=== PATIENT | female | born 1945 | race Asian ===

== ENCOUNTER 2016-12-11 11:04 | Outpatient (CLI) | payer OTHER ==
[~2016-12-11 11:04] MED LIST: BENADRYL25 M1 PO; CYCL10TA35 PO; HYDR10TA51 PO; LISI5TAB10 PO; MELO-13 PO; NEURONTIN800 MG PO; PRAVASTATIN10 MG PO; RANITIDINE 150150 MG PO; VESICARE10 MG OR; VITAMIN D32000 UNIT PO
[2016-12-11] MEDS ORDERED: RANITIDINE 150150 MG PO (11:54)
[2016-12-11] MEDS ORDERED: TRADJENTA5 M1 PO (11:54)
[2016-12-11] MEDS ORDERED: ESCITALOPRAM10 MG PO (11:54)
[2016-12-11] MEDS ORDERED: CELE200C2 PO (11:55)
[2016-12-11] MEDS ORDERED: LIPITOR10 MG PO (11:56)
[2016-12-11] MEDS ORDERED: TIZA4TAB5 PO (11:56)
[2017-04-17] MEDS ORDERED: VESICARE5 MG PO (03:17)
== END 2016-12-11 11:13 | disposition short-term general hospital (02) ==
LOC: AMB 11:04
DX: L89.329 Pressure ulcer of left buttock, unspecified stage (principal); L89.319 Pressure ulcer of right buttock, unspecified stage; R51 Headache
CPT/HCPCS: A0425; A0427

== ENCOUNTER 2016-12-11 11:13 | Emergency (ER) | payer OTHER ==
[~2016-12-11] VITALS: Ht 157.5 cm; Wt 72.6 kg
[2016-12-11] MEDS ORDERED: RANITIDINE 150150 MG PO (11:54)
[2016-12-11] MEDS ORDERED: TRADJENTA5 M1 PO (11:54)
[2016-12-11] MEDS ORDERED: ESCITALOPRAM10 MG PO (11:54)
[2016-12-11] MEDS ORDERED: CELE200C2 PO (11:55)
[2016-12-11] MEDS ORDERED: LIPITOR10 MG PO (11:56)
[2016-12-11] MEDS ORDERED: TIZA4TAB5 PO (11:56)
[2016-12-11 12:41] LABS: PLATELET COUNT 321 K/uL (152-353)
[2016-12-11 13:37] LABS: POTASSIUM 3.4 mmol/L (3.6-5.2); SODIUM 135 mmol/L (136-145)
[2016-12-11 14:47] VITALS: BP 147/78; TEMP 97.6
[2017-04-17] MEDS ORDERED: VESICARE5 MG PO (03:17)
== END 2016-12-11 14:48 | disposition home or self-care (01) ==
LOC: ED 11:13
PROVIDERS: Specialist
DX: M13.89 Other specified arthritis, multiple sites (principal); N39.0 Urinary tract infection, site not specified
CPT/HCPCS: 36415; 80048; 81000; 85027; 87088; 96372; 99283; J1885

== ENCOUNTER 2017-01-15 10:56 | Outpatient (CLI) | payer OTHER ==
[~2017-01-15 10:56] MED LIST changes: +CELE200C2 PO; +ESCITALOPRAM10 MG PO; +LIPITOR10 MG PO; +TIZA4TAB5 PO; +TRADJENTA5 M1 PO
[2017-01-15 11:21] LABS: PLATELET COUNT 370 K/uL (152-353)
[2017-01-16 06:29] LABS: POTASSIUM 3.9 mmol/L (3.6-5.2); SODIUM 136 mmol/L (136-145)
[2017-04-17] MEDS ORDERED: VESICARE5 MG PO (03:17)
== END 2017-01-15 19:41 | disposition home or self-care (01) ==
LOC: LABW 10:56
PROVIDERS: Nurse Practitioner
DX: M54.2 Cervicalgia (principal); D64.9 Anemia, unspecified; E11.9 Type 2 diabetes mellitus without complications; E55.9 Vitamin D deficiency, unspecified; M25.512 Pain in left shoulder; Z12.31 Encounter for screening mammogram for malignant neoplasm of breast
CPT/HCPCS: 36415; 80053; 82306; 82607; 82728; 83036; 83540; 84443; 85027; G0202-TC

== ENCOUNTER 2017-01-16 10:16 | Outpatient (CLI) | payer OTHER ==
[2017-04-17] MEDS ORDERED: VESICARE5 MG PO (03:17)
== END 2017-01-16 19:16 | disposition home or self-care (01) ==
LOC: LAB 10:16
DX: E11.9 Type 2 diabetes mellitus without complications (principal)
CPT/HCPCS: 82043; 82570

== ENCOUNTER 2017-02-05 20:54 | Outpatient (CLI) | payer OTHER ==
[2017-04-17] MEDS ORDERED: VESICARE5 MG PO (03:17)
== END 2017-02-05 21:04 | disposition short-term general hospital (02) ==
LOC: AMB 20:54
DX: M54.2 Cervicalgia (principal); M25.511 Pain in right shoulder; W18.11XA Fall from or off toilet without subsequent striking against object, initial encounter; Y92.89 Other specified places as the place of occurrence of the external cause
CPT/HCPCS: A0425; A0427

== ENCOUNTER 2017-02-05 21:04 | Emergency (ER) | payer OTHER ==
[~2017-02-05] VITALS: Ht 157.5 cm; Wt 68.0 kg
[2017-02-05 22:50] VITALS: BP 162/84; TEMP 97.8
[2017-04-17] MEDS ORDERED: VESICARE5 MG PO (03:17)
== END 2017-02-05 23:02 | disposition home or self-care (01) ==
LOC: ED 21:04
DX: M47.892 Other spondylosis, cervical region (principal); M25.712 Osteophyte, left shoulder; M25.711 Osteophyte, right shoulder; W18.11XA Fall from or off toilet without subsequent striking against object, initial encounter; Y92.89 Other specified places as the place of occurrence of the external cause
CPT/HCPCS: 99283

== ENCOUNTER 2017-02-21 11:05 | Outpatient (CLI) | payer OTHER ==
[2017-04-17] MEDS ORDERED: VESICARE5 MG PO (03:17)
== END 2017-02-21 20:18 | disposition home or self-care (01) ==
LOC: US 11:05
DX: R92.8 Other abnormal and inconclusive findings on diagnostic imaging of breast (principal)

== ENCOUNTER 2017-04-16 17:22 | Outpatient (CLI) | payer OTHER ==
[2017-04-17] MEDS ORDERED: VESICARE5 MG PO (03:17)
== END 2017-04-16 17:31 | disposition short-term general hospital (02) ==
LOC: AMB 17:22
DX: R51 Headache (principal); R53.1 Weakness; R06.09 Other forms of dyspnea
CPT/HCPCS: A0425; A0427

== ENCOUNTER 2017-06-17 13:40 | Outpatient (CLI) | payer OTHER ==
[~2017-06-17 13:40] MED LIST changes: +VESICARE5 MG PO
== END 2017-06-17 13:47 | disposition short-term general hospital (02) ==
LOC: AMB 13:40
DX: R25.2 Cramp and spasm (principal)
CPT/HCPCS: A0425; A0427

== ENCOUNTER 2017-06-17 13:52 | Emergency (ER) | payer OTHER ==
[~2017-06-17] VITALS: Ht 157.5 cm; Wt 59.0 kg
[2017-06-17 14:08] VITALS: TEMP 98.5
[2017-06-17 14:27] VITALS: BP 125/66
[2017-06-17 14:32] LABS: PLATELET COUNT 363 K/uL (152-353)
[2017-06-17 14:40] LABS: POTASSIUM 3.5 mmol/L (3.6-5.2); SODIUM 136 mmol/L (136-145)
== END 2017-06-17 16:20 | disposition home or self-care (01) ==
LOC: ED 13:52
DX: R41.0 Disorientation, unspecified (principal); N39.0 Urinary tract infection, site not specified
CPT/HCPCS: 36415; 80053; 81000; 85027; 87088; 96361; 96365; 99284; J0696

== ENCOUNTER 2017-08-27 12:15 | Outpatient (CLI) | payer OTHER ==
[2017-08-27] MEDS ORDERED: TIZA4TAB5 PO (12:50)
[2017-08-27] MEDS ORDERED: LISI5TAB10 PO (12:51)
[2017-08-27] MEDS ORDERED: LIPITOR10 MG PO (12:53)
[2017-08-27] MEDS ORDERED: VESICARE5 MG OR (12:55)
[2017-08-27] MEDS ORDERED: COZAAR25 MG PO (12:57)
[2017-08-27] MEDS ORDERED: VALSARTAN80 MG PO (12:57)
== END 2017-08-27 12:23 | disposition short-term general hospital (02) ==
LOC: AMB 12:15
DX: R53.81 Other malaise (principal); R52 Pain, unspecified
CPT/HCPCS: A0425; A0429

== ENCOUNTER 2017-08-27 12:26 | Observation (INO) | payer OTHER ==
[2017-08-27] VITALS (11 sets, daily range): BP systolic 105–179; BP diastolic 51–90; TEMP 97.7–98.6; Ht 157.5 cm; Wt 59.0 kg
[~2017-08-27] VITALS: Ht 157.5 cm; Wt 59.0 kg
[2017-08-27] MEDS ORDERED: TIZA4TAB5 PO (12:50)
[2017-08-27] MEDS ORDERED: LISI5TAB10 PO (12:51)
[2017-08-27] MEDS ORDERED: LIPITOR10 MG PO (12:53)
[2017-08-27] MEDS ORDERED: VESICARE5 MG OR (12:55)
[2017-08-27] MEDS ORDERED: VALSARTAN80 MG PO (12:57)
[2017-08-27] MEDS ORDERED: COZAAR25 MG PO (12:57)
[2017-08-27 13:46] LABS: POTASSIUM 3.6 mmol/L (3.6-5.2); SODIUM 135 mmol/L (136-145)
[2017-08-27 13:57] LABS: PLATELET COUNT 377 K/uL (152-353)
[2017-08-28] VITALS (12 sets, daily range): BP systolic 110–141; BP diastolic 57–79; TEMP 98
== END 2017-08-28 11:40 | disposition home or self-care (01) ==
LOC: ED 12:26 → MED/SURG 15:20 → ED 15:20 → ICU 15:20
PROVIDERS: ADMIT Internal Medicine
DX: R07.89 Other chest pain (principal); E11.9 Type 2 diabetes mellitus without complications; I10 Essential (primary) hypertension; M50.30 Other cervical disc degeneration, unspecified cervical region
CPT/HCPCS: 36415; 80053; 82550; 82553; 84484; 85027; 85610; 85730; 93005; 94760; 96372; 99220; 99284; G0378; J1650

== ENCOUNTER 2017-11-15 12:22 | Emergency (ER) | payer OTHER ==
[~2017-11-15] VITALS: Ht 160 cm; Wt 74.8 kg
[~2017-11-15 12:22] MED LIST changes: +COZAAR25 MG PO; +VALSARTAN80 MG PO; +VESICARE5 MG OR
[2017-11-15 12:58] VITALS: TEMP 97.8
[2017-11-15 17:11] VITALS: BP 130/68
== END 2017-11-15 17:19 | disposition home or self-care (01) ==
LOC: ED 12:22
DX: L89.109 Pressure ulcer of unspecified part of back, unspecified stage (principal)
CPT/HCPCS: 96372; 99283; J0696